=== PATIENT | female | born 1970 | race Caucasian/White ===

== ENCOUNTER → 2021-05-21 | Emergency (ER) | payer OTHER ==
[~2021-05-21] VITALS: Ht 162.6 cm; Wt 66.2 kg
[~2021-05-21] MED LIST: NAPROSYN500 MG PO; NEXIUM40 M2 PO; NORFLEX100 MG PO; TRAMADOL 50 MG50 MG PO
[2021-05-21 13:03] VITALS: BP 133/80
== END ==
LOC: M.ERS 11:45
DX: M53.3 Sacrococcygeal disorders, not elsewhere classified (principal); Z79.899 Other long term (current) drug therapy; Z88.1 Allergy status to other antibiotic agents; Z88.8 Allergy status to other drugs, medicaments and biological substances